=== PATIENT | male | born 1995 | race Caucasian/White ===

== ENCOUNTER 2017-11-17 03:57 | Emergency (ER) | payer OTHER ==
[~2017-11-17] VITALS: Ht 175.3 cm; Wt 79.4 kg
[2017-11-17 03:57] VITALS: BP_SYST 133
--- NOTE | 2017-11-17 04:00 | NUR ---
Patient to ER bed 3 for evaluation. Side rails up. Report given to RN.
--- NOTE | 2017-11-17 04:23 | NUR ---
ER Dr. Mcnulty at bedside examining patient.
--- NOTE | 2017-11-17 04:24 | NUR ---
Bedside chest x ray performed.
--- NOTE | 2017-11-17 04:25 | NUR ---
Patient came in to ED ambulatory, complains of chest tightness x 1 month with increasing intensity for past week. States PMD ran labwork and all blood work was normal. Has lifetime history of anxiety but this feels worse.
--- NOTE | 2017-11-17 05:05 | NUR ---
ekg performed at bedside. printout given to dr barraza.
[2017-11-17 05:09] LABS: CALCIUM 9.3 mg/dL (8.4-11.0); CREATININE 0.81 mg/dL (0.55-1.30); POTASSIUM 4.1 mmol/L (3.5-5.1)
[2017-11-17 05:10] LABS: BASOPHILS # (AUTO) 0.1 K/uL (0.0-0.2); BASOPHILS % (AUTO) 1.2 % (0.0-2.0); EOSINOPHILS # (AUTO) 0.2 K/uL (0.0-0.4); EOSINOPHILS % (AUTO) 2.5 % (0.0-4.0); HEMATOCRIT 47.5 % (36-54); HEMOGLOBIN 16.1 g/dL (14.0-18.0); LYMPHOCYTES # (AUTO) 3.5 K/uL (1.0-5.5); LYMPHOCYTES % (AUTO) 36.7 % (20.5-51.5); MEAN CORPUSCULAR HEMOGLOBIN 30 pg (27-31); MEAN CORPUSCULAR HGB CONC 34 % (32-36); MEAN CORPUSCULAR VOLUME 90 fL (79.0-98.0); MONOCYTES # (AUTO) 0.8 K/uL (0.0-1.0); MONOCYTES % (AUTO) 8.5 % (1.7-9.3); NEUTROPHILS # (AUTO) 4.8 K/uL (1.8-7.7); NEUTROPHILS % (AUTO) 51.1 % (40.0-70.0); PLATELET COUNT (AUTO) 193 K/uL (130-430); RED BLOOD CELL COUNT(AUTO) 5.31 MIL/uL (4.2-6.2); RED CELL DISTRIBUTION WIDTH 11.5 % (9.0-15.0); WHITE BLOOD COUNT (AUTO) 9.4 K/uL (4.5-11.0)
[2017-11-17 05:15] LABS: TOTAL BILIRUBIN 0.4 mg/dL (0.0-1.0)
--- NOTE | 2017-11-17 05:25 | NUR ---
Dr Mcnulty at bedside with discharge explanation.
--- NOTE | 2017-11-17 05:31 | NUR ---
Patient given written and verbal discharge instructions and verbalizes understanding. Dr. Mcnulty, CLARISSA MD, discussed with patient the results and treatment provided. Patient in stable condition. ID arm band removed. Patient educated on pain management and to follow up with PMD. Pain Scale 0/10. Opportunity for questions provided and answered. Medication side effect fact sheet provided.
[2017-11-17 05:39] VITALS: BP_SYST 133
== END 2017-11-17 05:31 | disposition home or self-care (01) ==
LOC: SED 03:57
DX: F45.8 Other somatoform disorders (principal); F17.200 Nicotine dependence, unspecified, uncomplicated
CPT/HCPCS: 36415; 71045; 80053; 85025; 99285